=== PATIENT | male | born 1955 | race Caucasian/White ===

== ENCOUNTER 2016-11-28 13:33 | Emergency (ER) | payer OTHER ==
[~2016-11-28 13:33] MED LIST: ASPI81 PO; FOLI1TAB PO; LORT5TAB PO; NIAC500T18 OR; PRED20 PO; [UNRECOGNIZED DRUG - REMARK]
[2016-11-28 13:35] VITALS: BP 159/82; PULSE 108; RESP 20; TEMP 97.7; O2SAT 90
== END 2016-11-28 19:30 | disposition left against medical advice (07) ==
LOC: NED 13:33
DX: J18.9 Pneumonia, unspecified organism (principal); Z53.21 Procedure and treatment not carried out due to patient leaving prior to being seen by health care provider
CPT/HCPCS: 99281